=== PATIENT | male | born 1990 | race Caucasian/White ===

== ENCOUNTER 2017-03-19 02:25 | Emergency (ER) | payer MEDICAID ==
[~2017-03-19] VITALS: Ht 185.4 cm; Wt 95.0 kg
[~2017-03-19 02:25] MED LIST: IBUP-1542 PO; ONDA4TAB8 PO
[2017-03-19 02:41] VITALS: Ht 185.4 cm; Wt 95.0 kg
[2017-03-19] MEDS ORDERED: KETOROLAC 60 MG INJ IM STA (03:07)
--- NOTE | 2017-03-19 03:25 | ERD ---
ER Documentation Chief Complaint Date/Time DATE: 03/19/17 TIME: 03:11 Chief Complaint left knee pain HPI 26-year-old male presents to emergency department for complaints of left knee pain started yesterday, patient was playing soccer, twisted her left knee while playing. Patient describes the pain as sharp pain, 8/10 scale, is worse upon movement. Patient is also complain of swelling, took ibuprofen for pain with mild relief. Patient denies any deformity. Patient denies any numbness or tingling. ROS All systems reviewed and are negative except as per history of present illness. Medications Home Meds Active Scripts Ondansetron Hcl* (Zofran*) 4 Mg Tablet, 4 MG PO Q6H for NAUSEA AND/OR VOMITING, #30 TAB Prov:MONAE ALONSO PA-C 01/27/16 Ibuprofen* (Motrin*) 600 Mg Tab, 600 MG PO Q6, #30 TAB Prov:MONAE ALONSO PA-C 01/27/16 Allergies Allergies: Coded Allergies: No Known Allergy (Unverified , 01/27/16) PMhx/Soc Medical and Surgical Hx: pt denies Medical Hx, pt denies Surgical Hx History of Surgery: No Anesthesia Reaction: No Hx Neurological Disorder: No Hx Respiratory Disorders: No Hx Cardiac Disorders: No Hx Psychiatric Problems: No Hx Miscellaneous Medical Probl: No Hx Alcohol Use: No Hx Substance Use: No Hx Tobacco Use: Yes (1 PACKS 2 DAYS) Smoking Status: Current every day smoker FmHx Family History: No coronary disease, No diabetes, No other Physical Exam Vitals Vital Signs Date Time Temp Pulse Resp B/P Pulse Ox O2 Delivery O2 Flow Rate FiO2 03/19/17 02:41 96.9 88 16 130/81 98 Physical Exam GENERAL: The patient is well developed and appropriate for usual state of health, in no apparent distress. CHEST: Clear to auscultation bilaterally. There are no rales, wheezes or rhonchi. HEART: Regular rate and rhythm. No murmurs, clicks, rubs or gallops. No S3 or S4. ABDOMEN: Soft, nontender and nondistended. Good bowel sounds. No rebound or guarding. No gross peritonitis. No gross organomegaly or masses. No Hatch sign or McBurney point tenderness. BACK: No midline or flank tenderness. EXTREMITIES: Noted some tenderness on palpation of the left knee, able to do full range of motion without any restriction. Patient is able to ambulate and bear weight on the left knee. Equal pulses bilaterally. Full range of motion of other joints of the body. Grossly neurovascularly intact. NEURO: Alert and oriented. Cranial nerves 2-12 intact. Motor strength in all 4 extremities with 5/5 strength. Sensation grossly intact. Normal speech and gait. SKIN: There is no apparent rash or petechia. The skin is warm and dry. HEMATOLOGIC AND LYMPHATIC: There is no evidence of excessive bruising or lymphedema. No gross cervical, axillary, or inguinal lymphadenopathy. Results 24 hrs Current Medications Medications (Trade) Dose Ordered Sig/Negra Route PRN Reason Start Time Stop Time Status Last Admin Dose Admin Ketorolac Tromethamine (Toradol) 60 mg ONCE STAT IM 03/19/17 03:07 03/19/17 03:08 DC 03/19/17 03:27 Patient was given medication for pain here in emergency department, after treatment, patient verbalized feeling much better. Patient's pain is improved. PROCEDURE: LEFT KNEE - 3 VIEWS CLINICAL INDICATION: 26-year-old male with left knee pain. TECHNIQUE: AP, lateral and oblique view of the left knee were obtained. The images reviewed on a PACS workstation. COMPARISON: None. FINDINGS: The bones appear intact, with no evidence of fracture, erosion, demineralization , or dislocation. The alignment of the femorotibial and patellofemoral joints appears normal. No joint space narrowing is seen. IMPRESSION: Unremarkable examination of the left knee. .Douglas Greer MD, Date Time Electronically viewed and signed by .Douglas Greer MD, MD on 03/19/2017 03:48 .M/ CC: KEN CARPIO NP After receiving patients xray report, a knee immobilizer was applied on the patients _left knee. After application of the splint, patient has intact sensation and circulation on distal area of the affected joint. Patient does not complain of numbness or tingling after application of the splint. Patient tolerated procedure well. Crutches given to use afterwards. Procedures/MDM Medical Decision Making: Patient's pain is most likely consistent with a contusion or a sprain or possible ligament injury, further evaluation by MRI was advised to do outpatient for further evaluation. There is no suspicion for neurovascular compromise. Patient has intact sensation and circulation of the affected extremity. There is low suspicion for septic arthritis. Patient does not have any fever. Radiology exams of the affected area does not show any fracture or dislocation. Disposition: Home. Patient is given prescription for ibuprofen for mild to moderate pain, Mathews for severe pain. Patient was advised to elevate the affected area and apply ice on affected area. Patient was advised that if symptoms are worse, numbness, tingling, high fever, unable to move joint, worsening symptoms, to return to emergency department immediately. Otherwise, patient is advised to follow up with the primary care doctor in 5-7 days for reevaluation of symptoms. MRI was recommended outpatient for further evaluation of possible ligament injury. Departure Diagnosis: Primary Impression: Knee pain Laterality: left Chronicity: acute Qualified Code: M25.562 - Acute pain of left knee Condition: Stable Patient Instructions: Knee Pain, Uncertain Cause Additional Instructions: Patient is given prescription for ibuprofen for mild to moderate pain, Mathews for severe pain. Patient was advised to elevate the affected area and apply ice on affected area. Patient was advised that if symptoms are worse, numbness, tingling, high fever, unable to move joint, worsening symptoms, to return to emergency department immediately. Otherwise, patient is advised to follow up with the primary care doctor in 5-7 days for reevaluation of symptoms. MRI was recommended outpatient for further evaluation of possible ligament injury. KEN CARPIO NP March 19, 2017 03:25
--- NOTE | 2017-03-19 03:48 | RADRPT ---
PROCEDURE: LEFT KNEE - 3 VIEWS CLINICAL INDICATION: 26-year-old male with left knee pain. TECHNIQUE: AP, lateral and oblique view of the left knee were obtained. The images reviewed on a PACS workstation. COMPARISON: None. FINDINGS: The bones appear intact, with no evidence of fracture, erosion, demineralization, or dislocation. Th e alignment of the femorotibial and patellofemoral joints appears normal. No joint space narrowing i s seen. IMPRESSION: Unremarkable examination of the left knee. .Douglas Greer MD, MD Date Time Electronically viewed and signed by .Douglas Greer MD, MD on 03/19/2017 03:48 .M/
[2017-03-19] MEDS ORDERED: HYDR-906 PO (03:54)
[2017-03-19] MEDS ORDERED: IBUP-1542 PO (03:54)
== END 2017-03-19 04:10 | disposition home or self-care (01) ==
LOC: FTE 02:25
DX: M25.562 Pain in left knee (principal); F17.210 Nicotine dependence, cigarettes, uncomplicated
CPT/HCPCS: 29505; 73562; 96372; J1885; Z7502